=== PATIENT | female | born 1995 | race African-American/Black ===

== ENCOUNTER 2019-08-01 17:01 | Emergency (ER) | payer OTHER ==
[~2019-08-01] VITALS: Ht 165.1 cm; Wt 113.4 kg
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
--- NOTE | 2019-08-01 17:12 | NUR ---
DELI CUTTER SLICER DEGRASSE AT BEDSIDE
[2019-08-01] MEDS ORDERED: diphenhydrAMINE HCL 50 MG/ML VIAL IV ONE (17:30)
[2019-08-01] MEDS ORDERED: IV NS 0.9% 1,000 ML BAG IV ONE (17:30)
[2019-08-01] MEDS ORDERED: METOCLOPRAMIDE HCL 10 MG/2 ML VIAL IV ONE (17:30)
[2019-08-01] MEDS ORDERED: diphenhydrAMINE HCL 50 MG/ML VIAL ONE (17:35)
[2019-08-01] MEDS ORDERED: METOCLOPRAMIDE HCL 10 MG/2 ML VIAL ONE (17:35)
--- NOTE | 2019-08-01 18:04 | NUR ---
SENT RAPID FLU SWAB TO LAB
--- NOTE | 2019-08-01 19:10 | NUR ---
IV removed. Catheter intact and site benign. Pressure and 4x4 applied to site. No bleeding noted. Patient discharged in custody of Officer Jessica Chapo in stable condition. Written and verbal after care instructions given. Patient and [employer] verbalizes understanding of instruction.
[2019-08-01 19:12] VITALS: BP 147/80
== END 2019-08-01 19:12 ==
LOC: ER 17:02
DX: G43.909 Migraine, unspecified, not intractable, without status migrainosus (principal); R55 Syncope and collapse; J45.909 Unspecified asthma, uncomplicated; Z88.0 Allergy status to penicillin
CPT/HCPCS: 87804 ×2; 96361; 96374; 96375; 99284; J1200; J2765; J7030 ×2